=== PATIENT | male | born 1955 | race Caucasian/White ===

== ENCOUNTER 2022-12-13 09:33 | Day surgery (SDC) | payer MEDICARE, OTHER ==
[2022-12-13] MEDS ORDERED: Propofol 200 MG/20 ML SDV IV ONE (09:34)
[2022-12-13] MEDS ORDERED: Sodium Chloride 0.9% 10 ML Syringe FLUSH PRN (09:45)
[2022-12-13] MEDS ORDERED: Lactated Ringers 1,000 ML IV SCH (09:45)
[2022-12-13] MEDS ORDERED: Simethicone Drops 40 MG/0.6 ML 30 ML Bottle ONE (11:17)
== END 2022-12-13 12:39 | disposition home or self-care (01) ==
LOC: FB.SDS 09:33
PROVIDERS: ATTEND Surgery
DX: Z12.11 Encounter for screening for malignant neoplasm of colon (principal); I10 Essential (primary) hypertension; E78.5 Hyperlipidemia, unspecified; E66.9 Obesity, unspecified; Z80.0 Family history of malignant neoplasm of digestive organs; Z79.899 Other long term (current) drug therapy; Z88.5 Allergy status to narcotic agent; Z87.891 Personal history of nicotine dependence
CPT/HCPCS: 00812; A9270-GY; J2704; J7120